=== PATIENT | male | born 1980 | race Asian ===

== ENCOUNTER 2018-11-18 21:50 | Emergency (ER) | payer OTHER, BC ==
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
[2018-11-18 23:33] VITALS: BP 129/85
== END 2018-11-18 23:40 | disposition home or self-care (01) ==
LOC: ER 21:50
DX: S16.1XXA Strain of muscle, fascia and tendon at neck level, initial encounter (principal); M54.5 Low back pain; M54.6 Pain in thoracic spine; M79.10 Myalgia, unspecified site; V87.7XXA Person injured in collision between other specified motor vehicles (traffic), initial encounter; I10 Essential (primary) hypertension; E11.9 Type 2 diabetes mellitus without complications
CPT/HCPCS: 72050; 99283